=== PATIENT | male | born 1970 | race Caucasian/White ===

== ENCOUNTER 2017-05-29 14:11 | Emergency (ER) | payer OTHER ==
[2017-05-29 14:18] VITALS: BMI 24.7
--- NOTE | 2017-05-29 14:23 | PDOC ---
History of Present Illness - General History Source: Patient Exam Limitations: No Limitations - History of Present Illness Initial Comments: 05/29/17 14:55 The patient is a 47 year old male, with no significant past medical history who presents to the emergency department with abnormal lab work. Patient was sent in sent by PCP for abnormal liver enzymes. Upon evaluation, patient reports blurry vision, nausea and SOB for the past several days. Patient states it has been hard to catch his breath at rest. Patient reports occasional alcohol use. Patient denies any PMHx however reports severe food poisoning in [place] February 2017. Patient reported intense abdominal pain and multiple episodes of diarrhea. Patient denies any current complaints and presents to the ED for further evaluation. He denies chest pain, headache or dizziness. He denies fever, chills , abdominal pain, nausea, vomit, diarrhea or constipation. He denies dysuria, frequency, urgency or hematuria. PCP: Regina <Kareen Mcguire - Last Filed: 05/29/17 17:36> <Alana Ng - Last Filed: 05/30/17 09:49> - General Chief Complaint: Revisit, Lab Variance Stated Complaint: REFERRED BY PHYSICIAN/liver enzymes Time Seen by Provider: 05/29/17 14:22 Past History <Kareen Mcguire - Last Filed: 05/29/17 17:36> - Past Medical History Other medical history: Pt denies, had food poisoning in [facility] 02/2017 - Suicide/Smoking/Psychosocial Hx Smoking History: Current every day smoker Number of Cigarettes Smoked Daily: 5 Cigars Per Day: 1 Information on smoking cessation initiated: Yes 'Breaking Loose' booklet given: 05/29/17 Hx Alcohol Use: No Drug/Substance Use Hx: No Substance Use Type: None <Alana Ng - Last Filed: 05/30/17 09:49> - Past Medical History Allergies/Adverse Reactions: Allergies Allergy/AdvReac Type Severity Reaction Status Date / Time No Known Allergies Allergy Verified 05/29/17 14:17 Review of Systems - Review of Systems Able to Perform ROS?: Yes Comments:: 05/29/17 14:55 GENERAL/CONSTITUTIONAL: No fever or chills. No weakness. HEAD, EYES, EARS, NOSE AND THROAT: No change in vision. No ear pain or discharge. No sore throat. CARDIOVASCULAR: No chest pain or shortness of breath. RESPIRATORY: No cough, wheezing, or hemoptysis. GASTROINTESTINAL: + nausea. No vomiting, diarrhea or constipation. GENITOURINARY: No dysuria, frequency, or change in urination. MUSCULOSKELETAL: No joint or muscle swelling or pain. No neck or back pain. SKIN: No rash NEUROLOGIC: No headache, vertigo, loss of consciousness, or change in strength/ sensation. ENDOCRINE: No increased thirst. No abnormal weight change. HEMATOLOGIC/LYMPHATIC: No anemia, easy bleeding, or history of blood clots. ALLERGIC/IMMUNOLOGIC: No hives or skin allergy. <Kareen Mcguire - Last Filed: 05/29/17 17:36> *Physical Exam - Vital Signs Last Vital Signs Temp Pulse Resp BP Pulse Ox 98.4 F 61 18 104/62 99 05/29/17 14:14 05/29/17 14:14 05/29/17 14:14 05/29/17 14:14 05/29/17 14:14 - Physical Exam Comments: 05/29/17 14:55 GENERAL: Awake, alert, and fully oriented, in no acute distress. +Jaundice. HEAD: No signs of trauma EYES: PERRLA, EOMI, sclera anicteric, conjunctiva clear ENT: Auricles normal inspection, hearing grossly normal, nares patent, oropharynx clear without exudates. Moist mucosa NECK: Normal ROM, supple, no lymphadenopathy, JVD, or masses LUNGS: + Poor air entry but no abnormal breath sounds. Breath sounds equal, clear to auscultation bilaterally. No wheezes, and no crackles HEART: Regular rate and rhythm, normal S1 and S2, no murmurs, rubs or gallops ABDOMEN: Soft, nontender, normoactive bowel sounds. No guarding, no rebound. No masses EXTREMITIES: Normal range of motion, no edema. No clubbing or cyanosis. No cords, erythema, or tenderness NEUROLOGICAL: Cranial nerves II through XII grossly intact. Normal speech, normal gait SKIN: Warm, Dry, normal turgor, no rashes or lesions noted. <Kareen Mcguire - Last Filed: 05/29/17 17:36> - Vital Signs Last Vital Signs Temp Pulse Resp BP Pulse Ox 98.4 F 61 18 104/62 99 05/29/17 14:14 05/29/17 14:14 05/29/17 14:14 05/29/17 14:14 05/29/17 14:14 <Alana Ng - Last Filed: 05/30/17 09:49> ED Treatment Course - LABORATORY CBC & Chemistry Diagram: 05/29/17 14:39 05/29/17 14:39 <Kareen Mcguire - Last Filed: 05/29/17 17:36> - LABORATORY CBC & Chemistry Diagram: 05/29/17 14:39 05/29/17 14:39 <Alana Ng - Last Filed: 05/30/17 09:49> Medical Decision Making - Medical Decision Making 05/29/17 17:36 CTAP Impression: Calcifications in the gallbladder likely gallstones with wall thickening and mild stranding of the surrounding fat. Please correlate with gallbladder ultrasound to rule out acute cholecystitis. Mild dilatation of the common bile duct for which further evaluation with MRCP is needed to rule out an intraluminal stone. There is also mild mesenteric stranding around the celiac artery, of uncertain etiology. The pancreas appears grossly unremarkable. M RI of the pancreas could be obtained if pancreatic pathology/pancreatitis is considered. Note is made of periportal edema which is nonspecific. Nondistention of the colon. Cannot rule out thickening of the cecum, proximal ascending colon as well as proximal and mid sigmoid colon. Further evaluation is needed to rule out colitis. Reported By: Licha Ruvalcaba MD 05/29/17 1567 <Kareen Mcguire - Last Filed: 05/29/17 17:36> - Medical Decision Making 05/29/17 15:55 Pt presents to the ED complaining of jaundice for 6 days. Denies nausea, vomiting, abdominal pain or fever. Denies OTC medications. Complaining of some mild, exertional shortness of breath. Appears jaundiced on my exam, without abdominal tenderness. Will check labs, CT abdomen pelvis to evaluate for liver lesions, acetamenophen level to evaluate for liver failure. Will check hepatitis panel. 05/29/17 16:04 <Alana Ng - Last Filed: 05/30/17 09:49> *DC/Admit/Observation/Transfer - Attestations Scribe Attestion: 05/29/17 14:55 Documentation prepared by Kareen Mcguire, acting as medical and scientific illustrator for Alana Ng MD, MD/DO. <Kareen Mcguire - Last Filed: 05/29/17 17:36> <Alana Ng - Last Filed: 05/30/17 09:49> Diagnosis at time of Disposition: Acute liver failure - Discharge Dispostion Disposition: TRANSFER ACUTE CARE/OTHER HOSP Condition at time of disposition: Fair - Referrals Referrals: Vazquez Tapia MD [Primary Care Provider] -
[2017-05-29 15:34] LABS: INR 1.24 (0.82-1.09); PROTHROMBIN TIME (PATIENT) 13.7 SEC (9.98-11.88)
[2017-05-29 15:36] LABS: ACTIVATED PTT 28.1 SECONDS (26.9-34.4)
[2017-05-29 15:41] LABS: BASOPHIL 1.4 % (0-2.0); EOSINOPHIL 2.4 % (0-4.5); MCH 27.3 pg (25.7-33.7); MCHC 34.2 g/dl (32.0-35.9); MEAN CELL VOLUME 79.8 fl (80-96); MEAN PLT VOLUME 10.6 fl (7.5-11.1); NEUTROPHILS 56.7 % (42.8-82.8); PLATELET COUNT 275 K/MM3 (134-434); RDW 16.1 % (11.9-15.9); WHITE BLOOD COUNT 5.2 K/mm3 (4.0-10.0)
[2017-05-29 15:46] LABS: ALK PHOS 210 U/L (45-117); ANION GAP 6 (8-16); CALCIUM 8.6 mg/dL (8.5-10.1); CO2 28 mmol/L (21-32); CREATININE 0.9 mg/dL (0.7-1.3); GLUCOSE,RANDOM 117 mg/dL (74-106); TOT PROT 6.5 g/dl (6.4-8.2)
[2017-05-29 15:59] LABS: SGOT/AST 975 U/L (15-37); SGPT/ALT 2161 U/L (12-78)
--- NOTE | 2017-05-29 17:49 | CON.GI ---
Consult Consult Specialty:: GI Referred by:: ER Reason for Consultation:: Deranged LFTs - History of Present Illness Chief Complaint: fatigue. Sent to ER by PCP for evaluation of markedly elevated LFTS drawn as opt. History of Present Illness: 47 M sent to ER for evaluation of markedly elevated LFTs noted as an opt by his PCP He states he was in [place] in January and ate mussels that made him sick, with a vomiting syndrome that lasted 4-5 days. He was feeling well until recently when he began to develop fatigue and weakness. He has no significant abdominal pain Acetaminophen level was below detection INR 1.24, AST/ALT 975/2161, t bili 19, Alk phos 210 - History Source History Provided By: Patient Limitations to Obtaining History: No Limitations - Alcohol/Substance Use Hx Alcohol Use: No - Smoking History Smoking history: Current every day smoker Aproximately how many cigarettes per day: 5 Home Medications - Allergies Allergies/Adverse Reactions: Allergies Allergy/AdvReac Type Severity Reaction Status Date / Time No Known Allergies Allergy Verified 05/29/17 14:17 Physical Exam-GI Vital Signs: Vital Signs Temperature 98.4 F 05/29/17 14:14 Pulse Rate 61 05/29/17 14:14 Respiratory Rate 18 05/29/17 14:14 Blood Pressure 104/62 05/29/17 14:14 O2 Sat by Pulse Oximetry (%) 99 05/29/17 14:14 Constitutional: Yes: Well Nourished HENT: Yes: Atraumatic Cardiovascular: Yes: Regular Rate and Rhythm Respiratory: Yes: CTA Bilaterally Gastrointestinal Inspection: Yes: WNL ...Auscultate: Yes: Normoactive Bowel Sounds ...Palpate: Yes: Soft. No: Tenderness ...Percussion: Yes: Dullness Labs: CBC, BMP 05/29/17 14:39 05/29/17 14:39 INR, PTT INR 1.24 (0.82-1.09) H 05/29/17 14:39 Hepatic Panel Total Bilirubin 19.0 mg/dL (0.2-1.0) H* 05/29/17 14:39 AST 975 U/L (15-37) H 05/29/17 14:39 ALT 2161 U/L (12-78) H 05/29/17 14:39 Alkaline Phosphatase 210 U/L (45-117) H 05/29/17 14:39 Albumin 3.0 g/dl (3.4-5.0) L 05/29/17 14:39 INR, PTT INR 1.24 (0.82-1.09) H 05/29/17 14:39 Imaging - Results Cat Scan: Report Reviewed Assessment/Plan Patient is 47 M with painless jaundice and t bili 19. Possibly malignancy. Stone unlikely with no pain or tenderness Poss acute hep B-serologies pending Possibly fulminant liver failure-need to trend LFTs . Should be in [facility] Recommend transfer to [facility]
[2017-05-29 20:16] VITALS: BP 116/79; PULSE 53; TEMP 98.1
--- NOTE | 2017-05-30 13:01 | EKG ---
Test Reason : Blood Pressure : / mmHG Vent. Rate : 050 BPM Atrial Rate : 050 BPM P-R Int : 182 ms QRS Dur : 090 ms QT Int : 436 ms P-R-T Axes : 029 -27 002 degrees QTc Int : 397 ms SINUS BRADYCARDIA WITH SINUS ARRHYTHMIA NONSPECIFIC ST ABNORMALITY NO PREVIOUS ECGS AVAILABLE Confirmed by TALIB WINTER MD ([id number]) on 05/30/2017 1:01:23 PM Referred By: Confirmed By:TALIB WINTER MD
[2017-06-01 14:12] LABS: HEP B SURFACE AB Non Reactive (.)
== END 2017-05-29 20:17 | disposition short-term general hospital (02) ==
LOC: JER 14:11
DX: K72.00 Acute and subacute hepatic failure without coma (principal); R17 Unspecified jaundice
CPT/HCPCS: 36415; 71010-TC; 74177-TC; 80053; 80074; 80307; 82728; 85025; 85610; 85730; 86704; 86706; 86708; 87340; 93005; 93010; 99284-25

== ENCOUNTER 2020-05-08 14:14 | Emergency (ER) | payer OTHER ==
[2020-05-08 14:23] VITALS: BMI 26.6
[2020-05-08] MEDS ORDERED: morphine CARPU-JECT 4 MG/1 ML DISP.SYRIN IVPUSH ONE (14:25)
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
[2020-05-08] MEDS ORDERED: morphine SULFATE 4 MG/ML VIAL ONE (14:26)
[2020-05-08] MEDS ORDERED: LACTATED RINGERS SOLUTION 1000 ML INFUS.BAG IV ONE (14:30)
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
[2020-05-08 15:44] VITALS: BP 131/93; PULSE 81; TEMP 97.7
== END 2020-05-08 15:46 | disposition short-term general hospital (02) ==
LOC: FER 14:14
PROC: 3E033NZ Introduction of Analgesics, Hypnotics, Sedatives into Peripheral Vein, Percutaneous Approach (ICD-10-PCS; principal; 2020-05-08)
DX: T23.009A Burn of unspecified degree of unspecified hand, unspecified site, initial encounter (principal); T23.039A Burn of unspecified degree of unspecified multiple fingers (nail), not including thumb, initial encounter
CPT/HCPCS: 99285-25